=== PATIENT | female | born 2000 | race Caucasian/White ===

== ENCOUNTER 2021-01-30 06:23 | Emergency (ER) | payer BC ==
[2021-01-30 07:39] LABS: HEMOGLOBIN 12.6 gm/dl (12.3-15.3); RED BLOOD COUNT 4.03 M/UL (4.00-5.10); WHITE BLOOD COUNT 9.8 K/UL (4.5-11.0)
[2021-01-30 07:59] LABS: BUN/CREATININE RATIO 18 (0-10)
== END 2021-01-30 10:31 | disposition home or self-care (01) ==
LOC: ER1 06:23
PROVIDERS: Physician Assistant
DX: R55 Syncope and collapse (principal); R51.9 Headache, unspecified; Z90.89 Acquired absence of other organs; Z88.1 Allergy status to other antibiotic agents
CPT/HCPCS: 70450; 71045; 80053; 81001; 82550; 82553; 83874; 84484; 84703; 85025; 93005; 96374; 99285; J1885

== ENCOUNTER → 2021-08-13 | Outpatient (CLI) | payer BC | LOC: KOH-I 08:30 | DX: J01.00 Acute maxillary sinusitis, unspecified (principal); R09.89 Other specified symptoms and signs involving the circulatory and respiratory systems | CPT/HCPCS: 70486 ==